=== PATIENT | male | born 1990 | race Caucasian/White ===

== ENCOUNTER 2018-09-28 17:17 | Emergency (ER) | payer SELFPAY ==
[2018-09-28] MEDS ORDERED: Ketorolac 30 MG/ML SDV IVPUSH ONE (17:27)
[2018-09-28] MEDS ORDERED: HYDROmorphone 1 MG/ML Syringe IVPUSH ONE ×2 (17:27→17:53)
[2018-09-28] MEDS ORDERED: Sodium Chloride 0.9% 10 ML Syringe FLUSH PRN (17:27)
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
[2018-09-28] MEDS ORDERED: Diphtheria,Pertussis(Acell),Tetanus Vaccine 0.5 ML SDV IM ONE (17:37)
[2018-09-28 17:43] VITALS: BP 135/72
[2018-09-28] MEDS ORDERED: Midazolam 1 MG/ML 5 ML SDV IVPUSH ONE ×2 (17:53→18:03)
[2018-09-28] MEDS ORDERED: Bacitracin Oint 1 GM U/D Packet TOP ONE (17:57)
[2018-09-28] MEDS ORDERED: Midazolam 1 MG/ML 5 ML SDV ONE (18:03)
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
--- NOTE | 2018-09-28 18:45 | CRLCR ---
Indication: Postreduction. Technique: Two views of the left hip were obtained and compared with a study from earlier today. Comparison: The current study is dated 1816 hours. Findings: The left femoral head is seated within the acetabulum. No definite acute fracture or subluxation is identified. A calcific density is identified lateral to the acetabulum, but this does not necessarily appear to be acute. Impression: Postreduction. Dictated by Ana Ho MD @ Sep 28 2018 6:43PM Signed by Dr. Ana Ho @ Sep 28 2018 6:44PM
== END 2018-09-28 18:40 | disposition home or self-care (01) ==
LOC: JP.ED 17:17
DX: S73.005A Unspecified dislocation of left hip, initial encounter (principal); Z23 Encounter for immunization; V86.56XA Driver of dirt bike or motor/cross bike injured in nontraffic accident, initial encounter
CPT/HCPCS: 27250; 73502; 90471; 90715; 96374; 96375; 99283; J1170; J1885; J2250